=== PATIENT | female | born 1940 | race Caucasian/White ===

== ENCOUNTER 2018-12-28 08:05 | Day surgery (SDC) | payer OTHER ==
[2013-08-10 19:50] VITALS: BMI 29.0
[~2018-12-28 08:05] MED LIST: LIDOCAINE 1% 20 ML MDV ID ONE
[2018-12-28 08:32] VITALS: TEMP 97.1
[2018-12-28] MEDS ORDERED: LIDOCAINE 1% 20 ML MDV ID STA (08:33)
[2018-12-28] MEDS ORDERED: LIDOCAINE 1% 20 ML MDV ID ONE (08:48)
[2018-12-28] MEDS ORDERED: DIPRIVAN 20 ML VIAL IVP ONE (09:00)
[2018-12-28 13:36] VITALS: BP 130/65
--- NOTE | 2018-12-29 11:29 | OP ---
PROCEDURE: COLONOSCOPY TO TRANSVERSE COLON. ENDOSCOPIST: Bina DUFFY M.D. INDICATION: CHANGE OF BOWEL HABITS. HISTORY OF DIVERTICULITIS. INSTRUMENT: [id number]. MEDICATION: PER ANESTHESIA. PROCEDURE: The patient was positioned for colonoscopy. The digital rectal exam was negative. The colonoscope was inserted through the anus and advanced to the sigmoid colon. A very dense diverticular disease to the sigmoid colon. We were unable to advance the colonoscope through this area. We changed to another pediatric colonoscopy hoping for more flexibility and again we were unable to advance to the sigmoid colon. I then changed to an adult endoscopy which we were able to eventually get through the sigmoid colon into the descending colon and advanced to the transverse colon. I was unable to reduce or move beyond what I felt like to be the midtransverse colon. The exam was terminated. She tolerated the procedure without immediate complication. PLAN: 1. Doubt the Barium Enema will add much to this exam. 2. Consider referral to a [facility] if she would like to complete her colonoscopy. There is no place for Cologuard in this instance. [place]
== END 2018-12-28 10:15 | disposition home or self-care (01) ==
LOC: SURG 08:05
PROVIDERS: ATTEND Internal Medicine Gastroenterology
DX: R10.9 Unspecified abdominal pain (principal); R19.4 Change in bowel habit; K57.92 Diverticulitis of intestine, part unspecified, without perforation or abscess without bleeding